=== PATIENT | male | born 1990 | race Caucasian/White ===

== ENCOUNTER 2021-11-06 22:46 | Emergency (ER) | payer SELFPAY ==
[~2021-11-06] VITALS: Ht 167.6 cm; Wt 53.7 kg
[2021-11-06 23:32] LABS: BASOPHILS % (AUTO) 0.6 % (0.0-2.0); EOSINOPHILS % (AUTO) 0.3 % (1.0-6.0); HEMATOCRIT 43.7 % (41-53); HEMOGLOBIN 15.1 g/dL (13.5-17.5); LYMPHOCYTES # (AUTO) 1.3 K/uL (1.0-4.8); LYMPHOCYTES % (AUTO) 22.2 % (22.0-44.0); MEAN CORPUSCULAR HEMOGLOBIN 31.1 pg (26.0-34.0); MEAN CORPUSCULAR HGB CONC 34.6 G/dL (31.0-37.0); MEAN CORPUSCULAR VOLUME 90 fL (80-100); MONOCYTES # (AUTO) 0.5 K/uL (0.1-1.0); MONOCYTES % (AUTO) 8.9 % (2.0-9.0); PLATELET COUNT (AUTO) 167 K/uL (150-450); RED BLOOD CELL COUNT(AUTO) 4.86 MIL/uL (4.50-5.90); RED CELL DISTRIBUTION WIDTH 12.8 % (11.5-14.5)
[2021-11-06 23:47] LABS: ALANINE AMINOTRANSFERASE 33 U/L (12-78); ALKALINE PHOSPHATASE 62 U/L (46-116); ANION GAP 13 mmol/L (8-16); ASPARTATE AMINOTRANSFERASE 24 U/L (15-37); BILIRUBIN,TOTAL 0.5 mg/dL (0.1-1.0); CALCIUM, TOTAL 9.4 mg/dL (8.8-10.5); CARBON DIOXIDE 23 mmol/L (22-29); CHLORIDE 104 mmol/L (98-107); CREATININE 1.34 mg/dL (0.60-1.30); GLUCOSE,RANDOM 132 mg/dL (70-110); SODIUM SERUM 140 mmol/L (136-145); TOTAL PROTEIN, SERUM 7.4 g/dL (6.4-8.2); UREA NITROGEN, BLOOD 16 mg/dL (7-18)
[2021-11-06 23:50] LABS: GLOMERULAR FILTR. RATE CALC > 60 mL/min (>60)
[2021-11-06 23:51] LABS: POTASSIUM 2.9 mmol/L (3.5-5.1)
[2021-11-07] MEDS ORDERED: POTASSIUM CHLORIDE 20 MEQ ER TABLET PO ONE
[2021-11-07 01:04] VITALS: BP 132/73
== END 2021-11-07 01:41 | disposition home or self-care (01) ==
LOC: EMS 22:46
DX: F41.9 Anxiety disorder, unspecified (principal); E87.6 Hypokalemia
CPT/HCPCS: 99284; 80053; 85025; 36415; 93005; G0480

== ENCOUNTER 2022-01-14 23:21 | Inpatient (IN) | payer MEDICAID ==
[~2022-01-14] VITALS: Ht 157.5 cm; Wt 54.9 kg
[2022-01-15] MEDS ORDERED: HALOPERIDOL LACTATE 5 MG/ML VIAL IM ONE (02:15)
[2022-01-15] MEDS ORDERED: LORazepam 2 MG/ML VIAL IM ONE (02:15)
[2022-01-15] MEDS ORDERED: DiphenhydrAMINE HCL 50 MG/ML VIAL IM ONE (02:15)
[2022-01-15] MEDS ORDERED: ZOLPIDEM TARTRATE 10 MG TABLET PO PRN (03:30)
[2022-01-15] MEDS ORDERED: LORazepam 2 MG TABLET PO PRN (03:30)
[2022-01-15] MEDS ORDERED: HALOPERIDOL 5 MG TABLET PO PRN (03:30)
[2022-01-15 06:34] LABS: COVID AG,FIA SOURCE NASAL SWAB
[2022-01-16 05:50] LABS: APPEARANCE,URINE CLEAR (CLEAR); BILIRUBIN,URINE NEGATIVE (NEGATIVE); GLUCOSE, URINE (UA) NEGATIVE (NEGATIVE); LEUKOCYTE ESTERASE ,URINE NEGATIVE (NEGATIVE); NITRATE,URINE NEGATIVE (NEGATIVE); OCCULT BLOOD,URINE NEGATIVE (NEGATIVE); PH,URINE 6.5 (5.0-8.0); PROTEIN,URINE NEGATIVE (NEGATIVE); SPECIFIC GRAVITIY, URINE 1.019 (1.003-1.030); UROBILINOGEN,URINE <=1.0 mg/dL (<=1.0)
[2022-01-16 05:55] LABS: AMPHET/METH SCREEN,URINE NEGATIVE (NEGATIVE); BARBITURATE SCREEN, URINE NEGATIVE (NEGATIVE); BENZODIAZEPINES SCREEN,URINE NEGATIVE (NEGATIVE); CANNABINOID SCREEN,URINE NEGATIVE (NEGATIVE); COCAINE SCREEN,URINE NEGATIVE (NEGATIVE); METHADONE SCREEN, URINE NEGATIVE (NEGATIVE); OPIATE SCREEN,URINE NEGATIVE (NEGATIVE)
[2022-01-16 05:56] LABS: PHENCYCLIDINE SCREEN,URINE NEGATIVE (NEGATIVE)
[2022-01-16 14:34] VITALS: BP 110/62
[2022-01-16] MEDS ORDERED: PNEUMOCOCCAL VACCINE POLYVALENT 0.5 ML VIAL [PPSV23] IM. ONE (15:15)
[2022-01-16 16:08] VITALS: BP 125/64
[2022-01-16] MEDS ORDERED: MAGNESIUM HYDROXIDE SUSPENSION 30 ML UDCUP PO PRN (18:00)
[2022-01-16] MEDS ORDERED: NICOTINE 14 MG/24 HOUR PATCH TD PRN (18:00)
[2022-01-16] MEDS ORDERED: CloNIDine HCL 0.1 MG TABLET PO PRN (18:00)
[2022-01-16] MEDS ORDERED: DOCUSATE SODIUM 100 MG CAPSULE PO PRN (18:00)
[2022-01-16] MEDS ORDERED: GuaiFENesin/D-METHORPHAN [SUGAR-FREE] 200-20MG/10 ML SYRUP UDCUP PO PRN (18:00)
[2022-01-16] MEDS ORDERED: ONDANSETRON HCL 4 MG TABLET PO PRN (18:00)
[2022-01-16] MEDS ORDERED: ALBUTEROL SULFATE HFA 90 MCG/PUFF 8 GM INHALER IH PRN (18:00)
[2022-01-16] MEDS ORDERED: LOPERAMIDE HCL 2 MG CAPSULE PO PRN (18:00)
[2022-01-16] MEDS ORDERED: PETROLATUM,WHITE 28 GM JELLY TP PRN (18:00)
[2022-01-16] MEDS ORDERED: MAG HYDROX/AL HYDROX/SIMETH ES 30 ML SUSPENSION UDCUP PO PRN (18:00)
[2022-01-17] MEDS: QUEtiapine FUMARATE 100 MG TABLET PO SCH (17:00)
[2022-01-17] MEDS: BENZTROPINE MESYLATE 1 MG TABLET PO SCH (17:00)
[2022-01-18] MEDS: BENZTROPINE MESYLATE 1 MG TABLET PO SCH ×2 (09:00→17:00)
[2022-01-18] MEDS: QUEtiapine FUMARATE 100 MG TABLET PO SCH ×2 (09:00→17:00)
[2022-01-18 21:07] VITALS: BP 130/78
[2022-01-19] MEDS: BENZTROPINE MESYLATE 1 MG TABLET PO SCH ×2 (08:35→16:31)
[2022-01-19] MEDS: QUEtiapine FUMARATE 100 MG TABLET PO SCH ×2 (08:35→16:31)
[2022-01-19 20:09] VITALS: BP 113/65
[2022-01-20] MEDS: BENZTROPINE MESYLATE 1 MG TABLET PO SCH ×2 (08:19→16:04)
[2022-01-20] MEDS: QUEtiapine FUMARATE 100 MG TABLET PO SCH ×2 (08:19→16:04)
[2022-01-20] MEDS: ACETAMINOPHEN 325 MG TABLET PO PRN (16:04)
[2022-01-21] MEDS: BENZTROPINE MESYLATE 1 MG TABLET PO SCH ×2 (09:00→17:00)
[2022-01-21] MEDS: QUEtiapine FUMARATE 100 MG TABLET PO SCH ×2 (09:00→17:00)
[2022-01-22] MEDS: BENZTROPINE MESYLATE 1 MG TABLET PO SCH ×2 (09:00→17:00)
[2022-01-22] MEDS: QUEtiapine FUMARATE 100 MG TABLET PO SCH ×2 (09:00→17:00)
[2022-01-23 08:26] LABS: GLUCOMETER DEV NAME(LOC) POC.BV
[2022-01-23 08:45] VITALS: BP 128/80
[2022-01-23] MEDS: QUEtiapine FUMARATE 100 MG TABLET PO SCH ×2 (09:00→17:00)
[2022-01-23] MEDS: BENZTROPINE MESYLATE 1 MG TABLET PO SCH ×2 (09:00→17:00)
[2022-01-24] MEDS: BENZTROPINE MESYLATE 1 MG TABLET PO SCH ×2 (09:00→17:00)
[2022-01-24] MEDS: QUEtiapine FUMARATE 100 MG TABLET PO SCH ×2 (09:00→17:00)
[2022-01-25] MEDS: BENZTROPINE MESYLATE 1 MG TABLET PO SCH ×2 (09:00→18:11)
[2022-01-25] MEDS: QUEtiapine FUMARATE 100 MG TABLET PO SCH ×2 (09:00→18:11)
[2022-01-25 11:18] VITALS: BP 128/80
[2022-01-25] MEDS ORDERED: HALOPERIDOL LACTATE 5 MG/ML VIAL IM PRN (17:30)
[2022-01-25] MEDS: RisperiDONE 2 MG TABLET PO SCH (18:11)
[2022-01-25 20:00] VITALS: BP 120/61
[2022-01-26] MEDS: RisperiDONE 2 MG TABLET PO SCH ×2 (08:17→16:20)
[2022-01-26] MEDS: BENZTROPINE MESYLATE 1 MG TABLET PO SCH ×2 (08:17→16:20)
[2022-01-26] MEDS: QUEtiapine FUMARATE 100 MG TABLET PO SCH ×2 (08:17→16:20)
[2022-01-26 20:23] VITALS: BP 124/60
[2022-01-27 08:23] VITALS: BP 103/60
[2022-01-27] MEDS: BENZTROPINE MESYLATE 1 MG TABLET PO SCH ×2 (09:03→16:28)
[2022-01-27] MEDS: RisperiDONE 2 MG TABLET PO SCH ×2 (09:03→16:28)
[2022-01-27] MEDS: QUEtiapine FUMARATE 100 MG TABLET PO SCH ×2 (09:03→16:28)
[2022-01-27] MEDS: ACETAMINOPHEN 325 MG TABLET PO PRN (13:15)
[2022-01-27 20:03] VITALS: BP 105/60
[2022-01-27] MEDS: IBUPROFEN 400 MG TABLET PO PRN (21:06)
[2022-01-28] MEDS: RisperiDONE 2 MG TABLET PO SCH ×2 (08:08→16:29)
[2022-01-28] MEDS: QUEtiapine FUMARATE 100 MG TABLET PO SCH ×2 (08:08→16:29)
[2022-01-28] MEDS: BENZTROPINE MESYLATE 1 MG TABLET PO SCH ×2 (08:08→16:29)
[2022-01-28 09:44] VITALS: BP 123/65
[2022-01-28] MEDS: IBUPROFEN 400 MG TABLET PO PRN (17:42)
[2022-01-28 20:06] VITALS: BP 110/64
[2022-01-29 09:00] VITALS: BP 117/60
[2022-01-29] MEDS: RisperiDONE 2 MG TABLET PO SCH (09:30)
[2022-01-29] MEDS: QUEtiapine FUMARATE 100 MG TABLET PO SCH ×2 (09:30→16:35)
[2022-01-29] MEDS: BENZTROPINE MESYLATE 1 MG TABLET PO SCH ×2 (09:30→16:36)
[2022-01-29] MEDS: RisperiDONE 3 MG TABLET PO SCH (16:36)
[2022-01-29 20:23] VITALS: BP 108/62
[2022-01-30] MEDS: BENZTROPINE MESYLATE 1 MG TABLET PO SCH ×2 (08:20→16:27)
[2022-01-30] MEDS: RisperiDONE 3 MG TABLET PO SCH ×2 (08:20→16:27)
[2022-01-30] MEDS: QUEtiapine FUMARATE 100 MG TABLET PO SCH ×2 (08:20→16:27)
[2022-01-30 09:00] VITALS: BP 121/66
[2022-01-30 16:02] LABS: GLUCOMETER DEV NAME(LOC) POC.BV
[2022-01-30 20:36] VITALS: BP 104/67
[2022-01-31 08:19] VITALS: BP 124/62
[2022-01-31] MEDS: BENZTROPINE MESYLATE 1 MG TABLET PO SCH (08:31)
[2022-01-31] MEDS: QUEtiapine FUMARATE 100 MG TABLET PO SCH (08:31)
[2022-01-31] MEDS: RisperiDONE 3 MG TABLET PO SCH (08:31)
[2022-01-31] MEDS ORDERED: BENZ1TAB96 PO ×2 (10:42→11:39)
[2022-01-31] MEDS ORDERED: QUET100T34 PO (10:42)
[2022-01-31] MEDS ORDERED: RISP3TAB63 PO (10:42)
[2022-01-31] MEDS ORDERED: QUET100T PO (11:40)
[2022-01-31] MEDS ORDERED: RISP3TAB35 PO (11:41)
== END 2022-01-31 13:00 | disposition home or self-care (01) | DRG 750 ==
LOC: EMS 23:22 → B2S 01-16 05:50
PROVIDERS: ADMIT Psychiatry & Neurology Child & Adolescent Psychiatry; ATTEND Psychiatry & Neurology Child & Adolescent Psychiatry
DX: F20.0 Paranoid schizophrenia (principal); Z91.199 Patient's noncompliance with other medical treatment and regimen due to unspecified reason; F10.239 Alcohol dependence with withdrawal, unspecified; G43.909 Migraine, unspecified, not intractable, without status migrainosus; Z20.822 Contact with and (suspected) exposure to COVID-19; F41.9 Anxiety disorder, unspecified; G47.00 Insomnia, unspecified; Z78.1 Physical restraint status; Z79.899 Other long term (current) drug therapy
CPT/HCPCS: 81003; 96372; 99285; J1200; J1630; J2060

== ENCOUNTER 2022-02-20 22:47 | Inpatient (IN) | payer BC, MEDICAID ==
[~2022-02-20] VITALS: Ht 162.6 cm; Wt 44.0 kg
[~2022-02-20 22:47] MED LIST: BENZ1TAB96 PO; QUET100T PO; QUET100T34 PO; RISP3TAB35 PO; RISP3TAB63 PO
[2022-02-20] MEDS ORDERED: INFLUENZA VIRUS VACCINE QVS 2022-23 (6MO+)/PF 60 MCG/0.5 ML SYRINGE IM. ONE (23:15)
[2022-02-20] MEDS ORDERED: HALOPERIDOL 5 MG TABLET PO PRN (23:15)
[2022-02-20] MEDS ORDERED: LORazepam 2 MG TABLET PO PRN (23:15)
[2022-02-20] MEDS ORDERED: ZOLPIDEM TARTRATE 10 MG TABLET PO PRN (23:15)
[2022-02-20] MEDS ORDERED: LORazepam 2 MG/ML VIAL IM ONE (23:30)
[2022-02-20] MEDS ORDERED: HALOPERIDOL LACTATE 5 MG/ML VIAL IM ONE (23:30)
[2022-02-20] MEDS ORDERED: DiphenhydrAMINE HCL 50 MG/ML VIAL IM ONE (23:30)
[2022-02-20 23:31] LABS: GLUCOMETER DEV NAME(LOC) POC.BV
[2022-02-21 00:14] VITALS: BP 101/62
[2022-02-21] MEDS ORDERED: PNEUMOCOCCAL VACCINE POLYVALENT 0.5 ML VIAL [PPSV23] IM. ONE (00:15)
[2022-02-21 09:03] VITALS: BP 100/53
[2022-02-21] MEDS: RisperiDONE 2 MG TABLET PO SCH ×2 (10:07→17:19)
[2022-02-21] MEDS: QUEtiapine FUMARATE 100 MG TABLET PO SCH ×2 (10:07→17:19)
[2022-02-21] MEDS: BENZTROPINE MESYLATE 1 MG TABLET PO SCH ×2 (10:08→17:19)
[2022-02-21] MEDS ORDERED: MAG HYDROX/AL HYDROX/SIMETH ES 30 ML SUSPENSION UDCUP PO PRN (20:15)
[2022-02-21] MEDS ORDERED: ALBUTEROL SULFATE HFA 90 MCG/PUFF 8 GM INHALER IH PRN (20:15)
[2022-02-21] MEDS ORDERED: PETROLATUM,WHITE 28 GM JELLY TP PRN (20:15)
[2022-02-21] MEDS ORDERED: NICOTINE 14 MG/24 HOUR PATCH TD PRN (20:15)
[2022-02-21] MEDS ORDERED: DOCUSATE SODIUM 100 MG CAPSULE PO PRN (20:15)
[2022-02-21] MEDS ORDERED: ACETAMINOPHEN 325 MG TABLET PO PRN (20:15)
[2022-02-21] MEDS ORDERED: IBUPROFEN 400 MG TABLET PO PRN (20:15)
[2022-02-21] MEDS ORDERED: CloNIDine HCL 0.1 MG TABLET PO PRN (20:15)
[2022-02-21] MEDS ORDERED: GuaiFENesin/D-METHORPHAN [SUGAR-FREE] 200-20MG/10 ML SYRUP UDCUP PO PRN (20:15)
[2022-02-21] MEDS ORDERED: ONDANSETRON HCL 4 MG TABLET PO PRN (20:15)
[2022-02-21] MEDS ORDERED: MAGNESIUM HYDROXIDE SUSPENSION 30 ML UDCUP PO PRN (20:15)
[2022-02-21] MEDS ORDERED: LOPERAMIDE HCL 2 MG CAPSULE PO PRN (20:15)
[2022-02-21 20:27] VITALS: BP 103/63
[2022-02-22] MEDS: BENZTROPINE MESYLATE 1 MG TABLET PO SCH ×2 (08:13→16:36)
[2022-02-22] MEDS: QUEtiapine FUMARATE 100 MG TABLET PO SCH ×2 (08:13→16:36)
[2022-02-22] MEDS: RisperiDONE 2 MG TABLET PO SCH ×2 (08:13→16:36)
[2022-02-22 14:28] VITALS: BP 119/61
[2022-02-22 15:40] LABS: APPEARANCE,URINE CLEAR (CLEAR); BILIRUBIN,URINE NEGATIVE (NEGATIVE); GLUCOSE, URINE (UA) NEGATIVE (NEGATIVE); KETONES,URINE NEGATIVE (NEGATIVE); LEUKOCYTE ESTERASE ,URINE NEGATIVE (NEGATIVE); NITRATE,URINE NEGATIVE (NEGATIVE); OCCULT BLOOD,URINE NEGATIVE (NEGATIVE); PROTEIN,URINE NEGATIVE (NEGATIVE); SPECIFIC GRAVITIY, URINE 1.023 (1.003-1.030)
[2022-02-22 15:55] LABS: AMPHET/METH SCREEN,URINE NEGATIVE (NEGATIVE); BARBITURATE SCREEN, URINE NEGATIVE (NEGATIVE); BENZODIAZEPINES SCREEN,URINE NEGATIVE (NEGATIVE); CANNABINOID SCREEN,URINE NEGATIVE (NEGATIVE); COCAINE SCREEN,URINE NEGATIVE (NEGATIVE); METHADONE SCREEN, URINE NEGATIVE (NEGATIVE); OPIATE SCREEN,URINE NEGATIVE (NEGATIVE)
[2022-02-22 16:01] LABS: PHENCYCLIDINE SCREEN,URINE NEGATIVE (NEGATIVE)
[2022-02-22 20:14] VITALS: BP 120/69
[2022-02-23 07:04] LABS: HEMATOCRIT 43.5 % (41-53); HEMOGLOBIN 14.5 g/dL (13.5-17.5); LYMPHOCYTES # (AUTO) 1.3 K/uL (1.0-4.8); LYMPHOCYTES % (AUTO) 28.5 % (22.0-44.0); MEAN CORPUSCULAR HEMOGLOBIN 31.3 pg (26.0-34.0); MEAN CORPUSCULAR HGB CONC 33.3 G/dL (31.0-37.0); MEAN CORPUSCULAR VOLUME 94 fL (80-100); MONOCYTES # (AUTO) 0.3 K/uL (0.1-1.0); MONOCYTES % (AUTO) 7.4 % (2.0-9.0); NEUTROPHILS # (AUTO) 2.8 K/uL (1.8-7.7); NEUTROPHILS % (AUTO) 60.1 % (40.0-70.0); PLATELET COUNT (AUTO) 116 K/uL (150-450); RED BLOOD CELL COUNT(AUTO) 4.62 MIL/uL (4.50-5.90); RED CELL DISTRIBUTION WIDTH 13.3 % (11.5-14.5)
[2022-02-23 07:29] LABS: ALANINE AMINOTRANSFERASE 47 U/L (12-78); ALBUMIN 3.2 g/dL (3.4-5.0); ALKALINE PHOSPHATASE 58 U/L (46-116); ANION GAP 6 mmol/L (8-16); ASPARTATE AMINOTRANSFERASE 25 U/L (15-37); BILIRUBIN,TOTAL 0.3 mg/dL (0.1-1.0); CALCIUM, TOTAL 8.5 mg/dL (8.8-10.5); CARBON DIOXIDE 31 mmol/L (22-29); CHLORIDE 105 mmol/L (98-107); CHOL/HDL RATIO 3.2 (4.2-7.3); CHOLESTEROL 176 mg/dL (131-200); CREATININE 0.91 mg/dL (0.60-1.30); FREE T4 (FREE THYROXINE) 0.97 ng/dL (0.76-1.46); GLUCOSE,RANDOM 97 mg/dL (70-110); HDL CHOLESTEROL 55 mg/dL (40-60); LDL CHOL (CALC.) 112 mg/dL (0-130); POTASSIUM 3.7 mmol/L (3.5-5.1); SODIUM SERUM 142 mmol/L (136-145); THYROID STIMULATING HORMONE 1.52 uIU/mL (0.36-3.74); TOTAL PROTEIN, SERUM 6.2 g/dL (6.4-8.2); TRIGLYCERIDES 45 mg/dL (15-150); UREA NITROGEN, BLOOD 11 mg/dL (7-18)
[2022-02-23 07:30] LABS: GLOMERULAR FILTR. RATE CALC > 60 mL/min (>60)
[2022-02-23 07:36] LABS: HEMOGLOBIN A1C 5.1 % (3.8-5.6)
[2022-02-23] MEDS: RisperiDONE 2 MG TABLET PO SCH ×2 (09:15→16:52)
[2022-02-23] MEDS: BENZTROPINE MESYLATE 1 MG TABLET PO SCH ×2 (09:15→16:52)
[2022-02-23] MEDS: QUEtiapine FUMARATE 100 MG TABLET PO SCH ×2 (09:15→16:52)
[2022-02-23 09:41] VITALS: BP 123/55
[2022-02-23 16:57] VITALS: BP 128/60
[2022-02-23 20:00] VITALS: BP 125/61
[2022-02-24 09:05] VITALS: BP 117/59
[2022-02-24] MEDS: BENZTROPINE MESYLATE 1 MG TABLET PO SCH ×2 (09:49→17:16)
[2022-02-24] MEDS: RisperiDONE 2 MG TABLET PO SCH ×2 (09:49→17:15)
[2022-02-24] MEDS: QUEtiapine FUMARATE 100 MG TABLET PO SCH ×2 (09:49→17:16)
[2022-02-24 20:38] VITALS: BP 127/68
[2022-02-25 08:48] VITALS: BP 116/69
[2022-02-25] MEDS: BENZTROPINE MESYLATE 1 MG TABLET PO SCH ×2 (09:07→16:55)
[2022-02-25] MEDS: RisperiDONE 2 MG TABLET PO SCH ×2 (09:07→16:55)
[2022-02-25] MEDS: QUEtiapine FUMARATE 100 MG TABLET PO SCH ×2 (09:07→16:56)
[2022-02-25 20:23] VITALS: BP 117/78
[2022-02-26] MEDS: QUEtiapine FUMARATE 100 MG TABLET PO SCH ×2 (08:36→19:16)
[2022-02-26] MEDS: RisperiDONE 2 MG TABLET PO SCH ×2 (08:36→16:15)
[2022-02-26] MEDS: BENZTROPINE MESYLATE 1 MG TABLET PO SCH ×2 (08:36→16:15)
[2022-02-26 09:03] VITALS: BP 134/66
[2022-02-26 17:51] LABS: GLUCOMETER DEV NAME(LOC) POC.BV
[2022-02-26 21:24] VITALS: BP 129/76
[2022-02-27 08:38] VITALS: BP 106/66
[2022-02-27] MEDS: BENZTROPINE MESYLATE 1 MG TABLET PO SCH ×2 (09:09→16:38)
[2022-02-27] MEDS: QUEtiapine FUMARATE 100 MG TABLET PO SCH ×2 (09:09→16:38)
[2022-02-27] MEDS: RisperiDONE 2 MG TABLET PO SCH ×2 (09:09→16:38)
[2022-02-27 20:05] VITALS: BP 114/58
[2022-02-28 08:31] VITALS: BP 120/60
[2022-02-28] MEDS: RisperiDONE 2 MG TABLET PO SCH ×2 (09:19→16:42)
[2022-02-28] MEDS: BENZTROPINE MESYLATE 1 MG TABLET PO SCH ×2 (09:20→16:42)
[2022-02-28] MEDS: QUEtiapine FUMARATE 100 MG TABLET PO SCH ×2 (09:20→16:42)
[2022-02-28 20:16] VITALS: BP 128/64
[2022-03-01 08:16] VITALS: BP 109/66
[2022-03-01] MEDS: QUEtiapine FUMARATE 100 MG TABLET PO SCH ×2 (08:42→16:18)
[2022-03-01] MEDS: RisperiDONE 2 MG TABLET PO SCH ×2 (08:42→16:18)
[2022-03-01] MEDS: BENZTROPINE MESYLATE 1 MG TABLET PO SCH ×2 (08:42→16:18)
[2022-03-01 20:26] VITALS: BP 111/60
[2022-03-02 08:30] VITALS: BP 118/57
[2022-03-02] MEDS: RisperiDONE 2 MG TABLET PO SCH ×2 (08:38→16:06)
[2022-03-02] MEDS: QUEtiapine FUMARATE 100 MG TABLET PO SCH ×2 (08:38→16:06)
[2022-03-02] MEDS: BENZTROPINE MESYLATE 1 MG TABLET PO SCH ×2 (08:38→16:06)
[2022-03-02 20:10] VITALS: BP 115/60
[2022-03-03] MEDS: BENZTROPINE MESYLATE 1 MG TABLET PO SCH ×2 (08:48→16:29)
[2022-03-03] MEDS: QUEtiapine FUMARATE 100 MG TABLET PO SCH ×2 (08:48→16:29)
[2022-03-03] MEDS: RisperiDONE 2 MG TABLET PO SCH ×2 (08:48→16:29)
[2022-03-03 08:55] VITALS: BP 108/66
[2022-03-03 22:09] VITALS: BP 124/55
[2022-03-04 08:54] VITALS: BP 128/66
[2022-03-04] MEDS: RisperiDONE 2 MG TABLET PO SCH ×2 (08:58→16:06)
[2022-03-04] MEDS: QUEtiapine FUMARATE 100 MG TABLET PO SCH ×2 (08:59→16:06)
[2022-03-04] MEDS: BENZTROPINE MESYLATE 1 MG TABLET PO SCH ×2 (08:59→16:06)
[2022-03-04 20:35] VITALS: BP 133/78
[2022-03-05 08:27] VITALS: BP 107/55
[2022-03-05] MEDS: QUEtiapine FUMARATE 100 MG TABLET PO SCH ×2 (08:39→16:24)
[2022-03-05] MEDS: BENZTROPINE MESYLATE 1 MG TABLET PO SCH ×2 (08:39→16:24)
[2022-03-05] MEDS: RisperiDONE 2 MG TABLET PO SCH ×2 (08:39→16:24)
[2022-03-05 08:41] LABS: GLUCOMETER DEV NAME(LOC) POC.BV
[2022-03-05 20:10] VITALS: BP 107/58
[2022-03-06] MEDS: RisperiDONE 2 MG TABLET PO SCH ×2 (08:46→16:11)
[2022-03-06] MEDS: BENZTROPINE MESYLATE 1 MG TABLET PO SCH ×2 (08:46→16:11)
[2022-03-06] MEDS: QUEtiapine FUMARATE 100 MG TABLET PO SCH ×2 (08:46→16:11)
[2022-03-06 08:48] VITALS: BP 120/69
[2022-03-06 20:32] VITALS: BP 106/64
[2022-03-07 08:07] VITALS: BP 126/66
[2022-03-07] MEDS: BENZTROPINE MESYLATE 1 MG TABLET PO SCH ×2 (09:09→16:20)
[2022-03-07] MEDS: QUEtiapine FUMARATE 100 MG TABLET PO SCH ×2 (09:09→16:20)
[2022-03-07] MEDS: RisperiDONE 2 MG TABLET PO SCH ×2 (09:09→16:20)
[2022-03-07 20:29] VITALS: BP 103/53
[2022-03-08 04:29] VITALS: BP 125/73
[2022-03-08 08:06] VITALS: BP 124/64
[2022-03-08] MEDS: RisperiDONE 2 MG TABLET PO SCH ×2 (09:19→16:26)
[2022-03-08] MEDS: BENZTROPINE MESYLATE 1 MG TABLET PO SCH ×2 (09:19→16:27)
[2022-03-08] MEDS: QUEtiapine FUMARATE 100 MG TABLET PO SCH ×2 (09:19→16:26)
[2022-03-08 20:09] VITALS: BP 126/76
[2022-03-09] MEDS: RisperiDONE 2 MG TABLET PO SCH (08:06)
[2022-03-09] MEDS: QUEtiapine FUMARATE 100 MG TABLET PO SCH (08:06)
[2022-03-09] MEDS: BENZTROPINE MESYLATE 1 MG TABLET PO SCH (08:06)
[2022-03-09 08:41] VITALS: BP 111/55
[2022-03-09] MEDS ORDERED: RISP2TAB86 PO (10:19)
[2022-03-09] MEDS ORDERED: BENZ1TAB96 PO (10:19)
[2022-03-09] MEDS ORDERED: QUET100T34 PO (10:19)
== END 2022-03-09 13:20 | disposition home or self-care (01) | DRG 885 ==
LOC: B3A 23:17 → B2S 02-23 06:52
PROVIDERS: ADMIT Psychiatry & Neurology Child & Adolescent Psychiatry; ATTEND Psychiatry & Neurology Child & Adolescent Psychiatry
DX: F20.0 Paranoid schizophrenia (principal); G43.909 Migraine, unspecified, not intractable, without status migrainosus; Z20.822 Contact with and (suspected) exposure to COVID-19; K59.00 Constipation, unspecified; Z91.199 Patient's noncompliance with other medical treatment and regimen due to unspecified reason
CPT/HCPCS: 80053; 80061; 80307; 81003; 83036; 84439; 84443; 85025; 87081; 90686; J1200; J1630; J2060

== ENCOUNTER 2022-03-22 10:22 | Emergency (ER) | payer BC, MEDICAID, OTHER ==
[~2022-03-22] VITALS: Ht 162.6 cm; Wt 72.7 kg
[2022-03-22 10:22] VITALS: BP 128/91
[~2022-03-22 10:22] MED LIST changes: -QUET100T PO; +RISP2TAB86 PO; -RISP3TAB35 PO; -RISP3TAB63 PO
[2022-03-22 11:21] LABS: BASOPHILS % (AUTO) 0.5 % (0.0-2.0); HEMATOCRIT 54.4 % (41-53); LYMPHOCYTES # (AUTO) 1.4 K/uL (1.0-4.8); LYMPHOCYTES % (AUTO) 18.3 % (22.0-44.0); MEAN CORPUSCULAR HEMOGLOBIN 30.8 pg (26.0-34.0); MEAN CORPUSCULAR VOLUME 93 fL (80-100); MONOCYTES # (AUTO) 0.4 K/uL (0.1-1.0); MONOCYTES % (AUTO) 5.1 % (2.0-9.0); NEUTROPHILS # (AUTO) 5.7 K/uL (1.8-7.7); NEUTROPHILS % (AUTO) 75.1 % (40.0-70.0); PLATELET COUNT (AUTO) 191 K/uL (150-450); RED BLOOD CELL COUNT(AUTO) 5.83 MIL/uL (4.50-5.90); RED CELL DISTRIBUTION WIDTH 13.2 % (11.5-14.5)
[2022-03-22 11:35] LABS: ANION GAP 11 mmol/L (8-16); CALCIUM, TOTAL 10.2 mg/dL (8.8-10.5); CARBON DIOXIDE 28 mmol/L (22-29); CHLORIDE 100 mmol/L (98-107); CREATININE 1.12 mg/dL (0.60-1.30); GLOMERULAR FILTR. RATE CALC > 60 mL/min (>60); GLUCOSE,RANDOM 99 mg/dL (70-110); SODIUM SERUM 139 mmol/L (136-145); UREA NITROGEN, BLOOD 16 mg/dL (7-18)
[2022-03-22 11:40] LABS: ALANINE AMINOTRANSFERASE 39 U/L (12-78); ALBUMIN 5.1 g/dL (3.4-5.0); ALKALINE PHOSPHATASE 86 U/L (46-116); ASPARTATE AMINOTRANSFERASE 19 U/L (15-37); BILIRUBIN,TOTAL 0.8 mg/dL (0.1-1.0); TOTAL PROTEIN, SERUM 9.6 g/dL (6.4-8.2)
[2022-03-22] MEDS ORDERED: LORazepam 1 MG TABLET PO ONE (11:45)
[2022-03-22] MEDS ORDERED: HALOPERIDOL 5 MG TABLET PO ONE (12:15)
== END 2022-03-22 12:14 | disposition home or self-care (01) ==
LOC: EMS 10:28
DX: F20.9 Schizophrenia, unspecified (principal); I51.9 Heart disease, unspecified; G43.909 Migraine, unspecified, not intractable, without status migrainosus
CPT/HCPCS: 99284; 80053; 85025; 36415; G0480

== ENCOUNTER 2022-04-29 13:01 | Emergency (ER) | payer OTHER ==
[~2022-04-29] VITALS: Ht 160 cm; Wt 69.1 kg
[2022-04-29] MEDS ORDERED: TRIHEXYPHENIDYL HCL 5 MG TABLET PO ONE (13:30)
[2022-04-29] MEDS ORDERED: LORazepam 1 MG TABLET PO ONE (13:30)
[2022-04-29] MEDS ORDERED: DiphenhydrAMINE HCL 25 MG/10 ML SOLUTION UDCUP PO ONE (13:30)
[2022-04-29 14:16] LABS: AMPHET/METH SCREEN,URINE NEGATIVE (NEGATIVE); BARBITURATE SCREEN, URINE NEGATIVE (NEGATIVE); BENZODIAZEPINES SCREEN,URINE NEGATIVE (NEGATIVE); CANNABINOID SCREEN,URINE NEGATIVE (NEGATIVE); COCAINE SCREEN,URINE NEGATIVE (NEGATIVE); METHADONE SCREEN, URINE NEGATIVE (NEGATIVE); OPIATE SCREEN,URINE NEGATIVE (NEGATIVE); PHENCYCLIDINE SCREEN,URINE NEGATIVE (NEGATIVE)
[2022-04-29 14:17] LABS: BASOPHILS % (AUTO) 0.4 % (0.0-2.0); EOSINOPHILS % (AUTO) 0.8 % (1.0-6.0); HEMATOCRIT 47.9 % (41-53); HEMOGLOBIN 15.9 g/dL (13.5-17.5); LYMPHOCYTES # (AUTO) 1.3 K/uL (1.0-4.8); LYMPHOCYTES % (AUTO) 19.4 % (22.0-44.0); MEAN CORPUSCULAR HEMOGLOBIN 30.8 pg (26.0-34.0); MEAN CORPUSCULAR HGB CONC 33.1 G/dL (31.0-37.0); MEAN CORPUSCULAR VOLUME 93 fL (80-100); MONOCYTES # (AUTO) 0.4 K/uL (0.1-1.0); MONOCYTES % (AUTO) 6.4 % (2.0-9.0); NEUTROPHILS # (AUTO) 4.8 K/uL (1.8-7.7); PLATELET COUNT (AUTO) 155 K/uL (150-450); RED BLOOD CELL COUNT(AUTO) 5.15 MIL/uL (4.50-5.90); RED CELL DISTRIBUTION WIDTH 13.2 % (11.5-14.5)
[2022-04-29 14:26] LABS: ANION GAP 5 mmol/L (8-16); CALCIUM, TOTAL 9.4 mg/dL (8.8-10.5); CARBON DIOXIDE 32 mmol/L (22-29); CHLORIDE 101 mmol/L (98-107); CREATININE 1.02 mg/dL (0.60-1.30); GLUCOSE,RANDOM 109 mg/dL (70-110); POTASSIUM 4.5 mmol/L (3.5-5.1); SODIUM SERUM 138 mmol/L (136-145); UREA NITROGEN, BLOOD 14 mg/dL (7-18)
[2022-04-29 14:27] LABS: GLOMERULAR FILTR. RATE CALC > 60 mL/min (>60)
[2022-04-29 14:34] LABS: ALANINE AMINOTRANSFERASE 33 U/L (12-78); ALBUMIN 4.3 g/dL (3.4-5.0); ALKALINE PHOSPHATASE 71 U/L (46-116); ASPARTATE AMINOTRANSFERASE 24 U/L (15-37); BILIRUBIN,TOTAL 0.3 mg/dL (0.1-1.0); TOTAL PROTEIN, SERUM 8.4 g/dL (6.4-8.2)
[2022-04-29] MEDS ORDERED: TRIH2TAB3 PO (15:37)
[2022-04-29 15:49] VITALS: BP 110/62
== END 2022-04-29 16:12 | disposition home or self-care (01) ==
LOC: EMS 13:04
DX: I51.9 Heart disease, unspecified (principal); G43.909 Migraine, unspecified, not intractable, without status migrainosus; F20.9 Schizophrenia, unspecified
CPT/HCPCS: 99284; 80053; 85025; 36415; 80307 ×2; G0480

== ENCOUNTER 2022-12-06 18:52 | Inpatient (IN) | payer MEDICAID ==
[~2022-12-06] VITALS: Ht 162.6 cm; Wt 80.1 kg
[~2022-12-06 18:52] MED LIST changes: +BENZ1TAB84 PO; -BENZ1TAB96 PO; +TRIH2TAB3 PO
[2022-12-06 20:56] LABS: GLUCOMETER DEV NAME(LOC) POC.BV
[2022-12-06] MEDS ORDERED: HALOPERIDOL 5 MG TABLET PO PRN (21:15)
[2022-12-06] MEDS ORDERED: LORazepam 2 MG/ML VIAL IM ONE (21:15)
[2022-12-06] MEDS ORDERED: HALOPERIDOL LACTATE 5 MG/ML VIAL IM ONE (21:15)
[2022-12-06] MEDS ORDERED: ZOLPIDEM TARTRATE 10 MG TABLET PO PRN (21:15)
[2022-12-06] MEDS ORDERED: DiphenhydrAMINE HCL 50 MG/ML VIAL IM ONE (21:15)
[2022-12-06] MEDS ORDERED: LORazepam 2 MG TABLET PO PRN (21:15)
[2022-12-06 21:19] VITALS: BP 135/68; PULSE 98; RESP 18; TEMP 97
[2022-12-06] MEDS ORDERED: LORazepam 2 MG/ML VIAL ONE (21:32)
[2022-12-06] MEDS ORDERED: DiphenhydrAMINE HCL 50 MG/ML VIAL ONE (21:32)
[2022-12-06] MEDS ORDERED: HALOPERIDOL LACTATE 5 MG/ML VIAL ONE (21:32)
[2022-12-06 21:59] VITALS: BP 144/65; PULSE 90; RESP 18; TEMP 98.2
[2022-12-06 22:14] VITALS: BP 144/75; PULSE 99; RESP 18; TEMP 98.4
[2022-12-07 03:31] LABS: GLUCOMETER DEV NAME(LOC) POC.BV
[2022-12-07] MEDS ORDERED: CloNIDine HCL 0.1 MG TABLET PO PRN (07:15)
[2022-12-07] MEDS ORDERED: MAGNESIUM HYDROXIDE SUSPENSION 30 ML UDCUP PO PRN (07:15)
[2022-12-07] MEDS ORDERED: MAG HYDROX/AL HYDROX/SIMETH ES 30 ML SUSPENSION UDCUP PO PRN (07:15)
[2022-12-07] MEDS ORDERED: NICOTINE 14 MG/24 HOUR PATCH TD PRN (07:15)
[2022-12-07] MEDS ORDERED: ACETAMINOPHEN 325 MG TABLET PO PRN (07:15)
[2022-12-07] MEDS ORDERED: ALBUTEROL SULFATE HFA 90 MCG/PUFF 8 GM INHALER IH PRN (07:15)
[2022-12-07] MEDS ORDERED: GuaiFENesin/D-METHORPHAN [SUGAR-FREE] 200-20MG/10 ML SYRUP UDCUP PO PRN (07:15)
[2022-12-07] MEDS ORDERED: PETROLATUM,WHITE 28 GM JELLY TP PRN (07:15)
[2022-12-07] MEDS ORDERED: ONDANSETRON HCL 4 MG TABLET PO PRN (07:15)
[2022-12-07] MEDS ORDERED: DOCUSATE SODIUM 100 MG CAPSULE PO PRN (07:15)
[2022-12-07] MEDS ORDERED: LOPERAMIDE HCL 2 MG CAPSULE PO PRN (07:15)
[2022-12-07] MEDS: NICOTINE 14 MG/24 HOUR PATCH TD SCH (08:12)
[2022-12-07 08:50] VITALS: BP 100/66; PULSE 70; RESP 17; TEMP 97.2; O2SAT 95
[2022-12-07] MEDS: RisperiDONE 2 MG TABLET PO SCH ×2 (11:09→20:54)
[2022-12-07 20:56] VITALS: BP 109/69; PULSE 79; RESP 18; TEMP 98; O2SAT 97
[2022-12-08 07:37] LABS: BASOPHILS % (AUTO) 0.4 % (0.0-2.0); EOSINOPHILS % (AUTO) 2.1 % (1.0-6.0); HEMATOCRIT 43.8 % (41-53); HEMOGLOBIN 14.4 g/dL (13.5-17.5); LYMPHOCYTES # (AUTO) 2.1 K/uL (1.0-4.8); LYMPHOCYTES % (AUTO) 35.9 % (22.0-44.0); MEAN CORPUSCULAR HGB CONC 32.9 G/dL (31.0-37.0); MEAN CORPUSCULAR VOLUME 91 fL (80-100); MONOCYTES # (AUTO) 0.4 K/uL (0.1-1.0); MONOCYTES % (AUTO) 7.7 % (2.0-9.0); NEUTROPHILS # (AUTO) 3.1 K/uL (1.8-7.7); NEUTROPHILS % (AUTO) 53.9 % (40.0-70.0); PLATELET COUNT (AUTO) 127 K/uL (150-450); RED BLOOD CELL COUNT(AUTO) 4.79 MIL/uL (4.50-5.90)
[2022-12-08 07:53] LABS: HEMOGLOBIN A1C 4.8 % (3.8-5.6)
[2022-12-08 08:02] LABS: ALANINE AMINOTRANSFERASE 24 U/L (12-78); ALBUMIN 3.1 g/dL (3.4-5.0); ALKALINE PHOSPHATASE 89 U/L (46-116); ANION GAP 9 mmol/L (8-16); ASPARTATE AMINOTRANSFERASE 31 U/L (15-37); BILIRUBIN,TOTAL 0.5 mg/dL (0.1-1.0); CARBON DIOXIDE 28 mmol/L (22-29); CHLORIDE 104 mmol/L (98-107); CHOL/HDL RATIO 5.4 (4.2-7.3); CHOLESTEROL 198 mg/dL (131-200); CREATININE 0.77 mg/dL (0.60-1.30); FREE T4 (FREE THYROXINE) 1.14 ng/dL (0.76-1.46); GLOMERULAR FILTR. RATE CALC > 60 mL/min (>60); GLUCOSE,RANDOM 82 mg/dL (70-110); HDL CHOLESTEROL 37 mg/dL (40-60); LDL CHOL (CALC.) 145 mg/dL (0-130); POTASSIUM 3.5 mmol/L (3.5-5.1); SODIUM SERUM 141 mmol/L (136-145); THYROID STIMULATING HORMONE 4.13 uIU/mL (0.36-3.74); TOTAL PROTEIN, SERUM 6.3 g/dL (6.4-8.2); TRIGLYCERIDES 79 mg/dL (15-150)
[2022-12-08] MEDS: NICOTINE 14 MG/24 HOUR PATCH TD SCH (08:59)
[2022-12-08] MEDS: RisperiDONE 2 MG TABLET PO SCH ×2 (08:59→20:08)
[2022-12-08 10:00] VITALS: BP 99/56; PULSE 80; RESP 20; TEMP 98.4; O2SAT 99
[2022-12-08 11:21] VITALS: RESP 20
[2022-12-08 12:49] VITALS: RESP 20
[2022-12-08 15:33] VITALS: RESP 18
[2022-12-08] MEDS: IBUPROFEN 400 MG TABLET PO PRN (15:33)
[2022-12-08 16:33] VITALS: RESP 16
[2022-12-08 20:41] VITALS: BP 109/68; PULSE 86; RESP 17; TEMP 97; O2SAT 96
[2022-12-09] MEDS: NICOTINE 14 MG/24 HOUR PATCH TD SCH (08:05)
[2022-12-09] MEDS: RisperiDONE 2 MG TABLET PO SCH (08:05)
[2022-12-09 08:28] VITALS: BP 115/62; PULSE 100; RESP 18; TEMP 97.8; O2SAT 97
[2022-12-09 09:41] VITALS: RESP 18
[2022-12-09] MEDS: IBUPROFEN 400 MG TABLET PO PRN (09:41)
[2022-12-09 10:41] VITALS: RESP 18
[2022-12-09] MEDS ORDERED: RISP2TAB86 PO ×2 (10:49→23:41)
== END 2022-12-09 11:45 | disposition home or self-care (01) | DRG 750 ==
LOC: B3A 21:18
PROVIDERS: ADMIT Psychiatry & Neurology Psychiatry; ATTEND Psychiatry & Neurology Psychiatry
DX: F20.0 Paranoid schizophrenia (principal); Z20.822 Contact with and (suspected) exposure to COVID-19; Z79.899 Other long term (current) drug therapy
CPT/HCPCS: 80053; 80061; 83036; 84439; 84443; 85025; J1200; J1630; J2060; Q0162

== ENCOUNTER 2022-12-28 20:23 | Emergency (ER) | payer BC, MEDICAID, OTHER ==
[~2022-12-28] VITALS: Ht 157.5 cm; Wt 72.7 kg
[~2022-12-28 20:23] MED LIST changes: -BENZ1TAB84 PO; -QUET100T34 PO; -TRIH2TAB3 PO
[2022-12-28 20:57] LABS: BASOPHILS % (AUTO) 0.7 % (0.0-2.0); LYMPHOCYTES # (AUTO) 2.3 K/uL (1.0-4.8); LYMPHOCYTES % (AUTO) 22.9 % (22.0-44.0); MEAN CORPUSCULAR VOLUME 91 fL (80-100); MONOCYTES # (AUTO) 0.6 K/uL (0.1-1.0); MONOCYTES % (AUTO) 5.6 % (2.0-9.0); NEUTROPHILS % (AUTO) 69.8 % (40.0-70.0); PLATELET COUNT (AUTO) 206 K/uL (150-450); RED BLOOD CELL COUNT(AUTO) 5.16 MIL/uL (4.50-5.90); RED CELL DISTRIBUTION WIDTH 13.3 % (11.5-14.5); WHITE BLOOD COUNT (AUTO) 10.1 K/uL (4.5-11.0)
[2022-12-28 21:06] VITALS: TEMP 98
[2022-12-28 21:10] LABS: ANION GAP 18 mmol/L (8-16); CARBON DIOXIDE 21 mmol/L (22-29); CHLORIDE 99 mmol/L (98-107); CREATININE 1.14 mg/dL (0.60-1.30); GLOMERULAR FILTR. RATE CALC > 60 mL/min (>60); GLUCOSE,RANDOM 135 mg/dL (70-110); POTASSIUM 3.1 mmol/L (3.5-5.1); SODIUM SERUM 138 mmol/L (136-145); UREA NITROGEN, BLOOD 13 mg/dL (7-18)
[2022-12-28 21:16] LABS: ALANINE AMINOTRANSFERASE 15 U/L (12-78); ALBUMIN 3.9 g/dL (3.4-5.0); ALKALINE PHOSPHATASE 119 U/L (46-116); ASPARTATE AMINOTRANSFERASE 21 U/L (15-37); BILIRUBIN,TOTAL 0.5 mg/dL (0.1-1.0); CALCIUM, TOTAL 8.1 mg/dL (8.8-10.5); CREATINE KINASE, TOTAL ONLY 74 U/L (39-308); TOTAL PROTEIN, SERUM 7.8 g/dL (6.4-8.2)
[2022-12-28 21:18] LABS: TROPONIN I-HIGH SENSITIVITY 5 ng/L (<76)
[2022-12-28 21:27] LABS: ALCOHOL, BLOOD (SERUM) < 3 mg/dL (0-10)
[2022-12-28 21:32] LABS: B-TYPE NATRIURETIC PEPTIDE 10 pg/mL (0-100)
[2022-12-28 22:07] LABS: COVID AG,FIA SOURCE NASOPHARYNGEAL
[2022-12-28 22:08] LABS: ALCOHOL, URINE DRUG SCREEN NEGATIVE (NEGATIVE); AMPHET/METH SCREEN,URINE NEGATIVE (NEGATIVE); BARBITURATE SCREEN, URINE NEGATIVE (NEGATIVE); BENZODIAZEPINES SCREEN,URINE NEGATIVE (NEGATIVE); CANNABINOID SCREEN,URINE NEGATIVE (NEGATIVE); COCAINE SCREEN,URINE NEGATIVE (NEGATIVE); METHADONE SCREEN, URINE NEGATIVE (NEGATIVE); OPIATE SCREEN,URINE NEGATIVE (NEGATIVE); PHENCYCLIDINE SCREEN,URINE NEGATIVE (NEGATIVE)
[2022-12-28 22:15] LABS: SARS-COV2 (COVID) ANTIGEN,FIA Negative (Negative)
[2022-12-28] MEDS ORDERED: ZOLPIDEM TARTRATE 10 MG TABLET PO PRN (22:30)
[2022-12-28] MEDS ORDERED: LORazepam 2 MG TABLET PO PRN (22:30)
[2022-12-28] MEDS ORDERED: HALOPERIDOL 5 MG TABLET PO PRN (22:30)
[2022-12-28] MEDS ORDERED: POTASSIUM CHLORIDE 20 MEQ ER TABLET PO ONE (22:45)
[2022-12-29 11:29] VITALS: BP 122/69; PULSE 80; RESP 16
== END 2022-12-29 11:31 | disposition home or self-care (01) ==
LOC: EMS 20:24
DX: F25.9 Schizoaffective disorder, unspecified (principal); E87.6 Hypokalemia; I51.9 Heart disease, unspecified; G43.909 Migraine, unspecified, not intractable, without status migrainosus; Z98.890 Other specified postprocedural states; Z20.822 Contact with and (suspected) exposure to COVID-19
CPT/HCPCS: 99285; 71045; 87426; 80053; 82550; 83880; 84484; 85025; 36415; 93005; 80307; G0480

== ENCOUNTER 2023-01-16 12:55 | Emergency (ER) | payer OTHER ==
[~2023-01-16] VITALS: Ht 154.9 cm; Wt 79.5 kg
[2023-01-16 13:11] VITALS: BP 127/80; PULSE 98; RESP 20; TEMP 98.4
== END 2023-01-16 14:26 | disposition left against medical advice (07) ==
LOC: EMS 12:55
DX: R44.3 Hallucinations, unspecified (principal); Z53.21 Procedure and treatment not carried out due to patient leaving prior to being seen by health care provider
CPT/HCPCS: 99281; Z7502

== ENCOUNTER 2024-05-08 17:05 | Emergency (ER) | payer MEDICAID, OTHER ==
[~2024-05-08] VITALS: Ht 157.5 cm; Wt 84.5 kg
[~2024-05-08 17:05] MED LIST changes: +RISP-32 PO; -RISP2TAB86 PO
[2024-05-08 17:10] VITALS: BP 129/70; PULSE 124; RESP 16; TEMP 98.3; O2SAT 98
[2024-05-08] MEDS ORDERED: OLAN2.5T78 PO (17:17)
[2024-05-08] MEDS ORDERED: METF-1211 PO (17:17)
[2024-05-08] MEDS ORDERED: CLOZ25TA52 PO (17:17)
[2024-05-08] MEDS ORDERED: OLAN1TAB7 PO (17:17)
[2024-05-08] MEDS ORDERED: ATOR40TA28 PO (17:17)
[2024-05-08] MEDS ORDERED: DIVA-85 PO (17:17)
[2024-05-08] MEDS ORDERED: HALOPERIDOL 5 MG TABLET PO PRN (18:15)
[2024-05-08] MEDS ORDERED: LORazepam 2 MG TABLET PO PRN (18:15)
[2024-05-08] MEDS ORDERED: ZOLPIDEM TARTRATE 10 MG TABLET PO PRN (18:15)
== END 2024-05-08 21:53 | disposition left against medical advice (07) ==
LOC: EMS 17:05
DX: R45.851 Suicidal ideations (principal); Z53.21 Procedure and treatment not carried out due to patient leaving prior to being seen by health care provider